=== PATIENT | male | born 1980 | race Caucasian/White ===

== ENCOUNTER 2020-11-02 02:20 | Emergency (ER) | payer BC ==
[~2020-11-02] VITALS: Ht 172.7 cm; Wt 83.9 kg
[2020-11-02 02:23] VITALS: BP 131/85; Ht 172.7 cm; Wt 83.9 kg
== END 2020-11-02 05:56 | disposition home or self-care (01) ==
LOC: ED 02:20
DX: U07.1 COVID-19 (principal)